=== PATIENT | male | born 1990 | race Asian ===

== ENCOUNTER 2021-07-21 17:33 | Emergency (ER) | payer OTHER ==
[2021-07-21 17:55] VITALS: BP 146/94; PULSE 62; BMI 21.9
== END 2021-07-21 21:08 | disposition home or self-care (01) ==
LOC: JERFT 17:33
DX: K08.89 Other specified disorders of teeth and supporting structures (principal)
CPT/HCPCS: 99281-25

== ENCOUNTER 2023-08-31 10:45 | Emergency (ER) | payer OTHER ==
[2023-08-31 11:01] VITALS: BP 00/00; TEMP 98; BMI 25.8
== END 2023-08-31 13:00 | disposition home or self-care (01) ==
LOC: JER 10:45
DX: N48.89 Other specified disorders of penis (principal)
CPT/HCPCS: 99283-25

== ENCOUNTER 2023-12-07 17:48 | Emergency (ER) | payer OTHER ==
[2023-12-07 20:21] VITALS: BP 162/106; PULSE 90; RESP 18; BMI 25.0
== END 2023-12-07 22:46 | disposition home or self-care (01) ==
LOC: JER 17:48
DX: R63.0 Anorexia (principal)
CPT/HCPCS: 99283-25

== ENCOUNTER 2024-01-25 09:41 | Emergency (ER) | payer OTHER ==
[2024-01-25 09:59] VITALS: BMI 20.2
[2024-01-25] MEDS ORDERED: MIDAZOLAM HCL 5 MG/1 ML Single Dose Vial ONE ×2 (12:39→13:09)
[2024-01-25] MEDS: MIDAZOLAM HCL 2 MG/2 ML SINGLE DOSE VIAL IM ONE (12:47)
[2024-01-25] MEDS: MIDAZOLAM HCL 5 MG/1 ML Single Dose Vial IM ONE ×2 (12:47→13:39)
[2024-01-25] MEDS: KETAMINE HCL 200 MG/20 ML VIAL IM ONE ×3 (12:47→17:55)
[2024-01-25 15:27] VITALS: TEMP 97.5
[2024-01-25] MEDS ORDERED: HALOPERIDOL LACTATE 5 MG/ML ONE (15:41)
[2024-01-25] MEDS: LORazepam 2 MG/ML SDV VIAL IM ONE (15:45)
[2024-01-25] MEDS: HALOPERIDOL LACTATE 5 MG/ML IM ONE (15:45)
[2024-01-25] MEDS: KETAMINE HCL 500 MG/10 ML VIAL IM ONE (16:50)
[2024-01-25 17:35] LABS: BASO % 0.5 % (0-2.0); EOS % 0.6 % (0-4.5); HEMATOCRIT 46.8 % (35.4-49); HEMOGLOBIN 15.7 GM/dL (11.7-16.9); LYMPH % 30.1 % (8-40); MCH 25.8 pg (25.7-33.7); MCHC 33.6 g/dl (32.0-35.9); MEAN CELL VOLUME 76.8 fl (80-96); MEAN PLT VOLUME 9.8 fl (7.5-11.1); MONO % 7.4 % (3.8-10.2); NEUT % 61.4 % (42.8-82.8); PH,URINE 6.5 (5.0-8.0); PLATELET COUNT 142 10^3/uL (134-434); RBC 6.09 M/mm3 (4.00-5.60); RDW 15.2 % (11.9-15.9); URINE APPEARANCE CLEAR; URINE BILIRUBIN NEGATIVE (NEGATIVE); URINE COLOR YELLOW; URINE GLUCOSE (UA) NEGATIVE (NEGATIVE); URINE KETONE NEGATIVE (NEGATIVE); URINE LEUK ESTERASE NEGATIVE (NEGATIVE); URINE NITRITE NEGATIVE (NEGATIVE); URINE PROTEIN NEGATIVE (NEGATIVE); URINE UROBILINOGEN 0.2 mg/dL (0.2-1.0); WHITE BLOOD COUNT 6.5 K/mm3 (4.0-10.0)
[2024-01-25 17:52] LABS: POTASSIUM 3.7 mmol/L (3.5-5.1)
[2024-01-25 17:54] LABS: ALBUMIN 3.7 g/dl (3.4-5.0); BLOOD UREA NITROGEN 16.2 mg/dL (7-18); CALCIUM 9.5 mg/dL (8.5-10.1)
[2024-01-25 17:57] LABS: CREATININE 0.9 mg/dL (0.55-1.3)
[2024-01-25 17:59] LABS: BILIRUBIN,TOTAL 0.5 mg/dL (0.2-1); TOT PROT 6.9 g/dl (6.4-8.2)
[2024-01-25 18:01] VITALS: RESP 20
[2024-01-25] MEDS: AZITHROMYCIN 200 MG/5 ML BOTTLE PO ONE (19:48)
[2024-01-25 19:54] VITALS: BP 127/82; PULSE 67
== END 2024-01-25 19:59 | disposition home or self-care (01) ==
LOC: JER 09:41
PROC: 3E033GC Introduction of Other Therapeutic Substance into Peripheral Vein, Percutaneous Approach (ICD-10-PCS; principal; 2024-01-25)
PROC: 3E033GC Introduction of Other Therapeutic Substance into Peripheral Vein, Percutaneous Approach (ICD-10-PCS; 2024-01-25)
PROC: 3E033GC Introduction of Other Therapeutic Substance into Peripheral Vein, Percutaneous Approach (ICD-10-PCS; 2024-01-25)
PROC: 3E033GC Introduction of Other Therapeutic Substance into Peripheral Vein, Percutaneous Approach (ICD-10-PCS; 2024-01-25)
PROC: 3E033GC Introduction of Other Therapeutic Substance into Peripheral Vein, Percutaneous Approach (ICD-10-PCS; 2024-01-25)
DX: J18.9 Pneumonia, unspecified organism (principal); R45.1 Restlessness and agitation; R63.0 Anorexia
CPT/HCPCS: 36415; 71045-TC-FY; 80053; 81003; 84443; 85025; 87086; 99284-25

== ENCOUNTER 2024-03-10 12:36 | Emergency (ER) | payer OTHER ==
[2024-03-10 13:29] VITALS: BMI 20.2
[2024-03-10 15:26] LABS: BASO % 0.7 % (0-2.0); EOS % 0.6 % (0-4.5); HEMATOCRIT 46.9 % (35.4-49); HEMOGLOBIN 15.1 GM/dL (11.7-16.9); LYMPH % 15.5 % (8-40); MCH 25.6 pg (25.7-33.7); MCHC 32.1 g/dl (32.0-35.9); MEAN CELL VOLUME 79.9 fl (80-96); MEAN PLT VOLUME 9.6 fl (7.5-11.1); MONO % 6.2 % (3.8-10.2); PLATELET COUNT 163 10^3/uL (134-434); RBC 5.87 M/mm3 (4.00-5.60); RDW 16.6 % (11.9-15.9); WHITE BLOOD COUNT 6.3 K/mm3 (4.0-10.0)
[2024-03-10 16:16] LABS: POTASSIUM 4.1 mmol/L (3.5-5.1)
[2024-03-10 16:47] LABS: ALBUMIN 3.5 g/dl (3.4-5.0)
[2024-03-10 16:50] LABS: CREATININE 0.9 mg/dL (0.55-1.3)
[2024-03-10 16:51] LABS: TOT PROT 6.6 g/dl (6.4-8.2)
[2024-03-10 17:15] LABS: HIV INTERPRETATION NEGATIVE (NEGATIVE)
[2024-03-10 17:29] LABS: CALCIUM 9.6 mg/dL (8.5-10.1)
[2024-03-10 17:31] LABS: BLOOD UREA NITROGEN 20.2 mg/dL (7-18)
[2024-03-10 17:36] LABS: BILIRUBIN,TOTAL 0.3 mg/dL (0.2-1)
[2024-03-11 03:40] VITALS: BP 135/85; PULSE 86; RESP 18; TEMP 98.3
[2024-03-11] MEDS ORDERED: MIDAZOLAM HCL 5 MG/1 ML Single Dose Vial ONE (05:21)
[2024-03-11] MEDS: MIDAZOLAM HCL 5 MG/1 ML Single Dose Vial IM ONE (05:35)
[2024-03-11] MEDS ORDERED: HALOPERIDOL LACTATE 5 MG/ML ONE (08:44)
[2024-03-11] MEDS: HALOPERIDOL 2 MG TABLET PO ONE (08:53)
[2024-03-11] MEDS: HALOPERIDOL 1 MG TABLET PO ONE (08:59)
== END 2024-03-11 09:11 ==
LOC: JER 12:36
PROC: 3E023GC Introduction of Other Therapeutic Substance into Muscle, Percutaneous Approach (ICD-10-PCS; principal; 2024-03-11)
PROC: 3E023GC Introduction of Other Therapeutic Substance into Muscle, Percutaneous Approach (ICD-10-PCS; 2024-03-11)
DX: R45.6 Violent behavior (principal)
CPT/HCPCS: 36415; 80053; 80061; 80164; 82150; 83036; 83690; 84146; 85025; 86803; 87389; 93005; 93010; 99284-25